=== PATIENT | male | born 1975 | race Caucasian/White ===

== ENCOUNTER 2018-07-19 09:19 | Day surgery (SDC) | payer OTHER ==
[~2018-07-19] VITALS: Ht 177.8 cm; Wt 84.1 kg
[~2018-07-19 09:19] MED LIST: DOC250 PO; FAMO10 PO; LECITHIN SOYA; Multiple Vitam1 EAC1 PO; OXYC5 PO; PAIN RELIEVER500 MG PO
== END 2018-07-19 11:21 | disposition home or self-care (01) ==
LOC: ORSCSDS 09:19
PROVIDERS: Internal Medicine Gastroenterology
PROC: 0DBP8ZX Excision of Rectum, Via Natural or Artificial Opening Endoscopic, Diagnostic (ICD-10-PCS; principal; 2018-07-19 10:30)
DX: K51.20 Ulcerative (chronic) proctitis without complications (principal); Z87.891 Personal history of nicotine dependence
CPT/HCPCS: 88305

== ENCOUNTER 2021-05-13 19:03 | Emergency (ER) | payer BC ==
[~2021-05-13] VITALS: Ht 177.8 cm; Wt 86.2 kg
[2021-05-13] MEDS ORDERED: Norco 5-325 Ta1 EACH PO (21:14)
== END 2021-05-13 21:21 | disposition home or self-care (01) ==
LOC: ER 19:03
DX: Z88.8 Allergy status to other drugs, medicaments and biological substances (principal); S42.022A Displaced fracture of shaft of left clavicle, initial encounter for closed fracture; Z88.2 Allergy status to sulfonamides; V86.56XA Driver of dirt bike or motor/cross bike injured in nontraffic accident, initial encounter
CPT/HCPCS: 73000; 96372; 99283-25; A9270; J1885

== ENCOUNTER → 2023-01-13 | Outpatient (CLI) | payer SELFPAY ==
[~2023-01-13] MED LIST changes: +Norco 5-325 Ta1 EACH PO
== END ==
LOC: LAB 15:18 → LAB SHORT 15:18 → LAB FUT 01-05 13:30 → LAB SHORT 01-05 13:30
DX: K51.018 Ulcerative (chronic) pancolitis with other complication (principal)
CPT/HCPCS: 83993

== ENCOUNTER 2025-07-03 10:15 | Day surgery (SDC) | payer OTHER ==
[~2025-07-03] VITALS: Ht 177.8 cm; Wt 76.8 kg
--- NOTE | 2025-07-03 11:18 | NUR ---
07/03/25 1118 LOLLY MONTERO NO SED PER PT. END NOTE RDS
[2025-07-03 11:52] VITALS: BP 148/84
== END 2025-07-03 11:49 | disposition home or self-care (01) ==
LOC: ORSCSDS 10:15
PROVIDERS: Internal Medicine Gastroenterology
PROC: 0DJD8ZZ Inspection of Lower Intestinal Tract, Via Natural or Artificial Opening Endoscopic (ICD-10-PCS; principal; 2025-07-03 11:30)
DX: K51.90 Ulcerative colitis, unspecified, without complications (principal); Z85.038 Personal history of other malignant neoplasm of large intestine; Z79.899 Other long term (current) drug therapy; Z87.891 Personal history of nicotine dependence
CPT/HCPCS: J7120